=== PATIENT | female | born 1985 | race Two or more races ===

== ENCOUNTER → 2024-11-28 | Emergency (ER) | payer MEDICAID ==
[~2024-11-28] VITALS: Ht 170.2 cm; Wt 75.0 kg
[2024-11-28 20:01] VITALS: BP 134/97; PULSE 117; RESP 18; TEMP 98.3; O2SAT 98
[2024-11-28] MEDS: ACETAMINOPHEN 500 MG TABLET PO ONE (23:07)
== END | disposition home or self-care (01) ==
LOC: EMS 19:53
DX: S83.91XA Sprain of unspecified site of right knee, initial encounter (principal); F10.90 Alcohol use, unspecified, uncomplicated; W19.XXXA Unspecified fall, initial encounter; Y93.89 Activity, other specified; Y92.89 Other specified places as the place of occurrence of the external cause; Y99.8 Other external cause status
CPT/HCPCS: 29505; 99283

== ENCOUNTER 2025-02-04 01:38 | Emergency (ER) | payer MEDICAID ==
[~2025-02-04] VITALS: Ht 170.2 cm; Wt 75.0 kg
[2025-02-04 01:45] VITALS: TEMP 97.9
[2025-02-04 03:22] LABS: BASOPHILS % (AUTO) 1.4 % (0.0-2.0); EOSINOPHILS % (AUTO) 4.3 % (1.0-6.0); HEMATOCRIT 43.1 % (36-46); HEMOGLOBIN 14.6 g/dL (12.0-16.0); LYMPHOCYTES # (AUTO) 1.5 K/uL (1.0-4.8); LYMPHOCYTES % (AUTO) 46.3 % (22.0-44.0); MEAN CORPUSCULAR HEMOGLOBIN 34.8 pg (26.0-34.0); MEAN CORPUSCULAR HGB CONC 33.9 G/dL (31.0-37.0); MEAN CORPUSCULAR VOLUME 103 fL (80-100); MONOCYTES # (AUTO) 0.4 K/uL (0.1-1.0); MONOCYTES % (AUTO) 11.2 % (2.0-9.0); NEUTROPHILS # (AUTO) 1.2 K/uL (1.8-7.7); NEUTROPHILS % (AUTO) 36.8 % (40.0-70.0); PLATELET COUNT (AUTO) 199 K/uL (150-450); RED CELL DISTRIBUTION WIDTH 13.3 % (11.5-14.5); WHITE BLOOD COUNT (AUTO) 3.2 K/uL (4.5-11.0)
[2025-02-04 03:31] LABS: ANION GAP 8 mmol/L (8-16); CALCIUM, TOTAL 9.4 mg/dL (8.8-10.5); CARBON DIOXIDE 28 mmol/L (22-29); CHLORIDE 108 mmol/L (98-107); CREATININE 0.78 mg/dL (0.60-1.30); GLOMERULAR FILTR. RATE CALC > 60 mL/min (>60); GLUCOSE,RANDOM 86 mg/dL (70-110); POTASSIUM 4.2 mmol/L (3.5-5.1); SODIUM SERUM 144 mmol/L (136-145); UREA NITROGEN, BLOOD 10 mg/dL (7-18)
[2025-02-04 04:52] LABS: APPEARANCE,URINE CLEAR (CLEAR); BILIRUBIN,URINE NEGATIVE (NEGATIVE); COLOR,URINE LIGHT YELLOW (YELLOW); GLUCOSE, URINE (UA) NEGATIVE (NEGATIVE); KETONES,URINE NEGATIVE (NEGATIVE); LEUKOCYTE ESTERASE ,URINE NEGATIVE (NEGATIVE); NITRATE,URINE NEGATIVE (NEGATIVE); OCCULT BLOOD,URINE NEGATIVE (NEGATIVE); PROTEIN,URINE NEGATIVE (NEGATIVE); SPECIFIC GRAVITIY, URINE 1.013 (1.003-1.030); UROBILINOGEN,URINE <=1.0 mg/dL (<=1.0)
[2025-02-04] MEDS ORDERED: IOHEXOL 350 MG/ML 100 ML VIAL ONE (06:00)
[2025-02-04] MEDS ORDERED: KETOROLAC TROMETHAMINE 30 MG/ML VIAL IVP ONE (06:30)
[2025-02-04] MEDS ORDERED: PHEN-846 PO (06:40)
[2025-02-04] MEDS: TraMADol HCL 50 MG TABLET PO ONE (06:49)
[2025-02-04] MEDS: ACETAMINOPHEN 500 MG TABLET PO ONE (06:49)
[2025-02-04] MEDS: METHOCARBAMOL 500 MG TABLET PO ONE (06:49)
[2025-02-04 07:06] LABS: ALBUMIN 4.1 g/dL (3.4-5.0); BILIRUBIN,DIRECT 0.1 mg/dL (0.00-0.20); BILIRUBIN,TOTAL 0.2 mg/dL (0.1-1.0); TOTAL PROTEIN, SERUM 7.9 g/dL (6.4-8.2)
[2025-02-04 09:30] VITALS: BP 126/76; PULSE 78; RESP 20; O2SAT 96
== END 2025-02-04 09:41 | disposition home or self-care (01) ==
LOC: EMS 01:38
DX: R10.31 Right lower quadrant pain (principal); R30.0 Dysuria; R31.9 Hematuria, unspecified
CPT/HCPCS: 99285; 74177; 80048; 80076; 81003; 84703; 85025; 36415; J1885; Q9967